=== PATIENT | female | born 1935 | race Caucasian/White ===

== ENCOUNTER 2022-01-23 22:15 | Emergency (ER) | payer MEDICARE ==
[~2022-01-23] VITALS: Ht 157.5 cm; Wt 81.0 kg
--- NOTE | 2022-01-23 22:19 | PHYS DOC ---
Past History Past Medical History: CAD, CHF, Hypertension Past Surgical History: Angioplasty, Other Past Surgical History Stents x 6 CARDZ General Adult HPI: HPI: ".. I ve been having more angina... I took 4 nitros today... I ve been having episodes more often... I got worried ..,.and decided to come in.. but my brother is visiting me... so I do not want to be admitted yet.,. and when I do.. I want to go to [facility]..." Patient is a 86 year old female who presents with above hx and complaints of chest pain. Pain is described as somewhat cape-like over her shoulders and radiates anteriorly to the center of her chest. This is similar to her prior episodes of angina and chest pain. Episodes of chest pains are related to walking or taking more than 2 flights of stairs. Patient has had angina in the past but it seems more frequent recently. Patient has had 6 previous stents. Patient states she had 2 vessels that could not be stented. Patient normally follows at [facility] or [facility]. Patient's primary is Dr. Timi Cantu. Patient does have a history of hypertension elevated lipids and CHF. Patient has been taking her home meds as directed. Patient is on Xarelto as an anticoagulant and a baby aspirin as a antiplatelet. Patient is accompanied with her son. Review of Systems: Review of Systems: Constitutional: Denies fever or chills Eyes: Denies change in visual acuity HENT: Denies nasal congestion or sore throat Respiratory: Denies cough or shortness of breath Cardiovascular: Complains of chest pain GI: Denies abdominal pain, nausea, vomiting, bloody stools or diarrhea : Denies dysuria Musculoskeletal: Denies back pain or joint pain Integument: Denies rash Neurologic: Denies headache, focal weakness or sensory changes Endocrine: Denies polyuria or polydipsia Lymphatic: Denies swollen glands Psychiatric: Denies depression or anxiety Family History: Family History: Noncontributory to presentation tonight Current Medications: Current Meds: See nursing for home meds Allergies: Allergies: Has sensitivity to sulfa and metoprolol Physical Exam: PE: Constitutional: no acute distress, non-toxic appearance. [] Patient currently not having any angina HENT: Normocephalic, atraumatic, bilateral external ears normal, oropharynx moist, no oral exudates, nose normal. [] Eyes: PERRLA, EOMI, conjunctiva normal, no discharge. [] Neck: Normal range of motion, no tenderness, supple, no stridor. [] Cardiovascular:Heart rate regular rhythm, no murmur [] Lungs & Thorax: Bilateral breath sounds equal apex with bibasilar crackles auscultation [] Abdomen: Bowel sounds normal, soft, no tenderness, no masses, no pulsatile masses. [] Skin: Warm, dry, no erythema, no rash. [] Back: No tenderness, no CVA tenderness. [] Extremities: No tenderness, no cyanosis, no clubbing, ROM intact, no edema. [] Neurologic: Alert and oriented X 3, normal motor function, normal sensory function, no focal deficits noted. [] Psychologic: Affect normal, judgement normal, mood normal. [] EKG: EKG: My interpretation EKG shows a sinus rhythm at 87 bpm. Does have prolonged MS interval at 689 ms. She does have leftward axis and some contour changes in inferior area. No findings of acute STEMI of contralateral changes. Time of this EKG is 22 25 hours [] Radiology/Procedures: Radiology/Procedures: [][place] [address] IMAGING REPORT Signed PATIENT: JULIO CESAR MARSH MACCOUNT: [id number] : 1935 LOCATION: ER AGE: 86 SEX: F EXAM STATUS: REG ER ORD. PHYSICIAN: ANTONIO WILLS MD REASON: pain PROCEDURE: PORTABLE CHEST 1V XR CHEST 1V Clinical Indication: Reason: pain / Spl. Instructions: / History: Comparison: None. Findings: Atherosclerotic thoracic aorta. The cardiomediastinal silhouette is normal. Interstitial markings are prominent most apparent in the lung bases. Finding may be chronic. There is no pneumothorax. No pleural effusion is appreciated. No acute bone abnormality. IMPRESSION: Bibasilar interstitial opacities may be atelectasis, interstitial pneumonia, or scarring. Electronically signed by: Danilo Bennett MD (01/23/2022 11:02 PM) [facility] DICTATED AND SIGNED BY: DANILO BENNETT MD DATE: 01/23/22 2300 CC: ALEX JUSTICE MD; ANTONIO WILLS MD ~ Heart Score: C/O Chest Pain: Yes HEART Score for Chest Pain: HEART Score for Chest Pain Response (Comments) Value History Moderately Suspicious 1 ECG Nonspecific Repolarizatio 1 Age > 65 2 Risk Factors 1 or 2 Risk Factors 1 Troponin >3 x Normal Limit 2 Total 7 Risk Factors: Risk Factors: DM, Current or recent (<one month) smoker, HTN, HLP, family history of CAD, obesity. Risk Scores: Score 0 - 3: 2.5% MACE over next 6 weeks - Discharge Home Score 4 - 6: 20.3% MACE over next 6 weeks - Admit for Clinical Observation Score 7 - 10: 72.7% MACE over next 6 weeks - Early Invasive Strategies Course & Med Decision Making: Course & Med Decision Making Pertinent Labs and Imaging studies reviewed. (See chart for details) Patient continue meds as directed. Call her social services counselor in the morning for a follow-up. Suggest patient report to [facility] if she has further episodes of chest pain tonight. Encourage patient to be admitted tonight but patient flatly refused. Patient does exhibit UCAR capacity. Begged pt. reconsider her decision to not be admitted or transferred. Pt. finally agree to transfer to [facility] with findings on 3rd EKG and Elevation of Trop. 295. Transfer to [facility]- Dr Frederick accepting. Critical care 90 min. Impression:: 1. Chest pain 2. Mild CHF-BNP 1497 3. Increase episodes of angina 4. Diabetes glucose 159 5. NV - Trop 25 - repeat 62 third is 295. (Non-Stemi NV) [] Dragon Disclaimer: Dragon Disclaimer: This electronic medical record was generated, in whole or in part, using a voice recognition dictation system. Departure Departure: Referrals: ALEX JUSTICE MD (PCP) Erica Disclaimer This chart was dictated in whole or in part using Voice Recognition software in a busy, high-work load, and often noisy Emergency Department environment. It may contain unintended and wholly unrecognized errors or omissions. Dragon Disclaimer This chart was dictated in whole or in part using Voice Recognition software in a busy, high-work load, and often noisy Emergency Department environment. It may contain unintended and wholly unrecognized errors or omissions. ANTONIO WILLS MD Jan 23, 2022 22:19
[2022-01-23] MEDS ORDERED: IV RINGERS SOLUTION,LACTATED 1,000 ML IV SCH (22:30)
[2022-01-23] MEDS ORDERED: NITROGLYCERIN OINT 1 GM PACKET. TP ONE (22:30)
--- NOTE | 2022-01-23 22:34 | EKG ---
[address] [address] Test Date: 2022-01-23 Test Time: 22:25:43 Pat Name: JULIO CESAR MARSH Department: Room: Gender: F Medical Care Administrator: : 1935 Requested By: ANTONIO WILLS Order Number: [id number] Reading MD: Parish Mauro Measurements Intervals [place] Rate: 87 P: -39 [place]: 236 QRS: -18 QRSD: 72 T: 56 QT: 436 QTc: 525 Interpretive Statements SINUS RHYTHM PROLONGED [place] INTERVAL LEFTWARD AXIS QRS(T) CONTOUR ABNORMALITY CONSISTENT WITH INFERIOR INFARCT PROBABLY OLD ABNORMAL ECG RI6.02 No previous ECG available for comparison Electronically Signed On 01-27-2022 13:46:46 CDT by Parish Mauro
--- NOTE | 2022-01-23 23:05 | RAD ---
XR CHEST 1V Clinical Indication: Reason: pain / Spl. Instructions: / History: Comparison: None. Findings: Atherosclerotic thoracic aorta. The cardiomediastinal silhouette is normal. Interstitial markings are prominent most apparent in the lung bases. Finding may be chronic. There is no pneumothorax. No pleu ral effusion is appreciated. No acute bone abnormality. IMPRESSION: Bibasilar interstitial opacities may be atelectasis, interstitial pneumonia, or scarring. Electronically signed by: Danilo Bennett MD (01/23/2022 11:02 PM) [facility]
[2022-01-23 23:11] LABS: BASO # 0.1 x10^3/uL (0.0-0.2); BASO % 1 % (0-3); EOS % 0 % (0-3); HEMATOCRIT 38.9 % (36.0-47.0); HEMOGLOBIN 13.1 g/dL (12.0-15.5); LYMPH # 1.5 x10^3/uL (1.0-4.8); LYMPH % 16 % (24-48); MEAN CORPUSCULAR HEMOGLOBIN 30 pg (25-35); MEAN CORPUSCULAR HGB CONC 34 g/dL (31-37); MEAN CORPUSCULAR VOLUME 90 fL (79-100); MONO # 0.7 x10^3/uL (0.0-1.1); MONO % 7 % (0-9); NEUT # 7.7 x10^3uL (1.8-7.7); NEUT % 77 % (31-73); PLATELET COUNT 227 x10^3/uL (140-400); RED BLOOD COUNT 4.32 x10^6/uL (3.50-5.40); RED CELL DISTRIBUTION WIDTH 14.1 % (11.5-14.5)
[2022-01-23 23:23] LABS: CALCIUM 8.5 mg/dL (8.5-10.1); CREATININE 1.2 mg/dL (0.6-1.0); GFR 42.4; POTASSIUM 3.8 mmol/L (3.5-5.1)
[2022-01-23 23:36] LABS: ALBUMIN 3.3 g/dL (3.4-5.0); DIRECT BILIRUBIN 0.2 mg/dL (0.0-0.2); MAGNESIUM 1.9 mg/dL (1.8-2.4); TOTAL BILIRUBIN 0.6 mg/dL (0.2-1.0); TOTAL PROTEIN 6.5 g/dL (6.4-8.2)
[2022-01-24] MEDS ORDERED: FUROSEMIDE 40 MG/4 ML VIAL IVP ONE (00:30)
[2022-01-24 01:41] LABS: BARBITURATES NEG (NEG); BENZODIAZEPINES NEG (NEG); CANNABINOIDS NEG (NEG); COCAINE NEG (NEG); METHADONE NEG (NEG); OPIATES NEG (NEG); PHENCYCLIDINE NEG (NEG)
[2022-01-24 01:42] LABS: AMPHETAMINE/METHAMPHETAMINE NEG (NEG)
[2022-01-24 01:58] LABS: BACTERIA,URINE 0 /HPF (0-FEW); CLARITY,URINE CLEAR; COLOR,URINE YELLOW; GLUCOSE,URINE NEG (NEG); NITRITE,URINE NEG (NEG); RBC,URINE 0 /HPF (0-2); UROBILINOGEN,URINE 0.2 mg/dL (0.2 mg/dL)
--- NOTE | 2022-01-24 02:18 | EKG ---
[address] [address] Test Date: 2022-01-24 Test Time: 02:11:41 Pat Name: JULIO CESAR MARSH Department: Room: Gender: F Report Analyst: ANGELINA : 1935 Requested By: ANTONIO WILLS Order Number: [id number] Reading MD: Parish Mauro Measurements Intervals [place] Rate: 71 P: 0 MO: 242 QRS: -17 QRSD: 70 T: 34 QT: 444 QTc: 483 Interpretive Statements SINUS RHYTHM PROLONGED [place] INTERVAL LEFTWARD AXIS QRS(T) CONTOUR ABNORMALITY CONSISTENT WITH ANTEROSEPTAL INFARCT AGE UNDETERMINED CONSISTENT WITH INFERIOR INFARCT PROBABLY OLD Electronically Signed On 01-27-2022 13:45:45 CDT by Parish Mauro
[2022-01-24] MEDS ORDERED: ERYTHROMYCIN 0.5% OPHTH OINTMENT 1GM TUBE. OU ONE (03:30)
[2022-01-24] MEDS ORDERED: ASPIRIN 325 MG TABLET PO ONE (04:00)
[2022-01-24 07:35] VITALS: BP 144/68
[2022-01-24 18:37] LABS: CHOLESTEROL/HDL RATIO 2.3; THYROID STIM HORMONE (TSH) 0.55 uIU/mL (0.358-3.740)
== END 2022-01-24 07:48 | disposition short-term general hospital (02) ==
LOC: ER 22:15
DX: I21.4 Non-ST elevation (NSTEMI) myocardial infarction (principal); I25.119 Atherosclerotic heart disease of native coronary artery with unspecified angina pectoris; E11.9 Type 2 diabetes mellitus without complications; I11.0 Hypertensive heart disease with heart failure; I50.9 Heart failure, unspecified
CPT/HCPCS: 36415; 71045; 80048; 80061; 80076; 80307; 81001; 82550; 83690; 83735; 83880; 84443; 84484; 85025; 85379; 85610; 85730; 87086; 93005; 96361; 96374; 99291; 99292; J1940; J7120